=== PATIENT | female | born 1935 | race Caucasian/White ===

== ENCOUNTER → 2018-07-07 | Outpatient (CLI) | payer MEDICARE, OTHER | END | disposition home or self-care (01) | LOC: HKI 10:30 | DX: M16.11 Unilateral primary osteoarthritis, right hip (principal) | CPT/HCPCS: 73523 ==

== ENCOUNTER → 2018-09-11 | Outpatient (CLI) | payer MEDICARE, OTHER | END | disposition home or self-care (01) | LOC: LAB 08:00 | DX: Z01.818 Encounter for other preprocedural examination (principal) | CPT/HCPCS: 87081 ==

== ENCOUNTER → 2018-09-29 | Outpatient (CLI) | payer MEDICARE, OTHER | END | disposition home or self-care (01) | LOC: HKI 09:58 | DX: Z01.818 Encounter for other preprocedural examination (principal) ==

== ENCOUNTER 2018-10-02 06:39 | Inpatient (IN) | payer MEDICARE, OTHER ==
[2018-10-02] MEDS: TRANEXAMIC ACID 1,000 MG in NS 100 ML PRE-OP X1 IVPB (08:00)
[2018-10-02] MEDS ORDERED: DEXAMETHASONE 4 MG/ML 1 ML INJ IV (08:00)
[2018-10-02] MEDS: TRANEXAMIC ACID 1,000 MG in NS 100 ML INTRA-OP X1 IVPB (08:00)
[2018-10-02] MEDS: LACTATED RINGER'S 1,000 ML IV* (08:00)
[2018-10-02] MEDS: CEFAZOLIN 2 GM/50 ML (PMX) 50 ML IVPB ×2 (08:00→17:57)
[2018-10-02] MEDS ORDERED: ACETAMINOPHEN 500 MG TAB PO (08:00)
[2018-10-02] MEDS: DEXAMETHASONE 4 MG/ML 1 ML INJ IV (08:48)
[2018-10-02] MEDS: ACETAMINOPHEN 1000MG/100ML IV 100 ML IVPB (08:49)
[2018-10-02] MEDS ORDERED: FENTAnyl 50 MCG/ML VIAL (09:54)
[2018-10-02] MEDS ORDERED: PROPOFOL 20 ML (09:54)
[2018-10-02] MEDS ORDERED: LIDOCAINE 2% (SDV) 5 ML INJ (09:54)
[2018-10-02] MEDS ORDERED: PROCHLORPERAZINE 10 MG INJ IV (10:00)
[2018-10-02] MEDS ORDERED: FENTAnyl 50 MCG/ML VIAL IV (10:00)
[2018-10-02] MEDS ORDERED: HYDROmorphONE 1 MG/5 ML IV SYRINGE IV ×2 (10:00)
[2018-10-02] MEDS ORDERED: ONDANSETRON 4 MG INJ IV (10:00)
[2018-10-02] MEDS ORDERED: DIPHENHYDRAMINE 50 MG INJ IV (10:00)
[2018-10-02] MEDS ORDERED: MEPERIDINE 25 MG INJ IV (10:00)
[2018-10-02] MEDS ORDERED: MIDAZOLAM 1 MG/ML 2 ML INJ (10:17)
[2018-10-02] MEDS ORDERED: CEFAZOLIN 1 GM INJ (10:34)
[2018-10-02] MEDS ORDERED: ONDANSETRON 4 MG INJ (10:34)
[2018-10-02] MEDS ORDERED: EPHEDrine SULFATE 50 MG/5 ML SYG (10:34)
[2018-10-02] MEDS ORDERED: FAMOTIDINE 20 MG INJ (10:35)
[2018-10-02] MEDS: BACITRACIN 50000 UNITS INJ (10:49)
[2018-10-02] MEDS: POLYMYXIN B 500000 UNIT INJ (10:49)
[2018-10-02] MEDS: LACTATED RINGER'S 1,000 ML IV ×2 (11:51→17:57)
[2018-10-02] MEDS ORDERED: NACL 0.9% 3 ML SYG IV (12:00)
[2018-10-02] MEDS ORDERED: CEFAZOLIN 2 GM/50 ML (PMX) 50 ML IVPB (12:00)
[2018-10-02] MEDS: CELECOXIB 100 MG CAP PO ×2 (12:00→20:14)
[2018-10-02] MEDS ORDERED: BISACODYL 10 MG SUPP PR (12:00)
[2018-10-02] MEDS: ASPIRIN (EC) 81 MG TAB PO ×2 (12:40→20:14)
[2018-10-02] MEDS: METOPROLOL (XL) 50 MG TAB PO (13:00)
[2018-10-02] MEDS: GABAPENTIN 100 MG CAP PO ×4 (13:00→21:00)
[2018-10-02] MEDS: LOSARTAN 50 MG TAB PO (13:00)
[2018-10-02] MEDS: CALCIUM CARBONATE 500 MG CHEW TAB PO (20:14)
[2018-10-03] MEDS: LACTATED RINGER'S 1,000 ML IV ×2 (00:22→12:51)
[2018-10-03] MEDS: CEFAZOLIN 2 GM/50 ML (PMX) 50 ML IVPB (03:10)
[2018-10-03 05:24] LABS: ADD MAN DIFF? NO
[2018-10-03 05:28] LABS: BASOPHILS % 0.2 % (0.0-2.0); EOSINOPHILS % 0.1 % (0.0-7.0); HEMATOCRIT 26.5 % (37.0-47.0); HEMOGLOBIN 8.4 g/dl (12.0-16.0); LYMPHOCYTES # 0.9 10^3/ul (0.8-2.9); LYMPHOCYTES % 9.4 % (15.0-51.0); MEAN CORPUSCULAR HEMOGLOBIN 31.1 pg (29.0-33.0); MEAN CORPUSCULAR HGB CONC 31.7 g/dl (32.0-37.0); MEAN CORPUSCULAR VOLUME 98.1 fl (82.0-101.0); MEAN PLATELET VOLUME 9.3 fl (7.4-10.4); MONOCYTE # 0.8 10^3/ul (0.3-0.9); MONOCYTES % 8.2 % (0.0-11.0); NEUTROPHIL # 7.8 10^3/ul (1.6-7.5); NEUTROPHILS % 81.6 % (39.0-77.0); PLATELET COUNT 187 10^3/UL (140-415)
[2018-10-03 05:28] LABS: WHITE BLOOD COUNT 9.6 10^3/ul (4.8-10.8)
[2018-10-03] MEDS: PANTOPRAZOLE (EC) 40 MG TAB PO (05:31)
[2018-10-03 06:10] LABS: ANION GAP 8 (5-13); BLOOD UREA NITROGEN 24 mg/dl (7-20); CALCIUM 8.9 mg/dl (8.4-10.2); CARBON DIOXIDE 28 mmol/L (21-31); CHLORIDE 105 mmol/L (97-110); CREATININE 0.95 mg/dl (0.44-1.00); GLUCOSE 112 mg/dl (70-220); POTASSIUM 4.1 mmol/L (3.5-5.1); SODIUM 141 mmol/L (135-144)
[2018-10-03] MEDS: oxyCODONE 5 MG TAB PO (06:53)
[2018-10-03] MEDS: CELECOXIB 100 MG CAP PO ×2 (08:15→20:11)
[2018-10-03] MEDS: GABAPENTIN 100 MG CAP PO ×3 (08:15→20:11)
[2018-10-03] MEDS: METOPROLOL (XL) 50 MG TAB PO ×2 (08:15→21:00)
[2018-10-03] MEDS: ASPIRIN (EC) 81 MG TAB PO ×2 (08:16→20:11)
[2018-10-03] MEDS: LOSARTAN 50 MG TAB PO (08:16)
[2018-10-03] MEDS: MAGNESIUM OXIDE 400 MG TAB PO (08:19)
[2018-10-03] MEDS: CALCIUM CARBONATE 500 MG CHEW TAB PO ×2 (08:19→20:11)
[2018-10-03] MEDS: CHOLECALCIFEROL 2,000 UNIT CAP PO (08:19)
[2018-10-03] MEDS ORDERED: ONDANSETRON 4 MG INJ IV (12:00)
[2018-10-04] MEDS: LACTATED RINGER'S 1,000 ML IV ×2 (01:21→13:51)
[2018-10-04] MEDS: oxyCODONE 5 MG TAB PO ×3 (05:06→21:16)
[2018-10-04] MEDS: PANTOPRAZOLE (EC) 40 MG TAB PO (05:06)
[2018-10-04 05:25] LABS: ADD MAN DIFF? NO
[2018-10-04 05:29] LABS: WHITE BLOOD COUNT 6.7 10^3/ul (4.8-10.8)
[2018-10-04 05:29] LABS: BASOPHILS % 0.6 % (0.0-2.0); EOSINOPHILS # 0.2 10^3/ul (0.0-0.5); EOSINOPHILS % 2.4 % (0.0-7.0); HEMATOCRIT 26.6 % (37.0-47.0); HEMOGLOBIN 8.5 g/dl (12.0-16.0); LYMPHOCYTES # 1.3 10^3/ul (0.8-2.9); LYMPHOCYTES % 19.6 % (15.0-51.0); MEAN CORPUSCULAR HEMOGLOBIN 31.6 pg (29.0-33.0); MEAN CORPUSCULAR VOLUME 98.9 fl (82.0-101.0); MEAN PLATELET VOLUME 9.6 fl (7.4-10.4); MONOCYTE # 0.6 10^3/ul (0.3-0.9); MONOCYTES % 9.4 % (0.0-11.0); NEUTROPHIL # 4.5 10^3/ul (1.6-7.5); NEUTROPHILS % 67.7 % (39.0-77.0); PLATELET COUNT 175 10^3/UL (140-415); RED BLOOD COUNT 2.69 10^6/ul (4.20-5.40); RED CELL DISTRIBUTION WIDTH 13.4 % (11.5-14.5)
[2018-10-04 05:46] LABS: PHOSPHORUS 2.4 mg/dl (2.5-4.9)
[2018-10-04 05:57] LABS: ANION GAP 9 (5-13); BLOOD UREA NITROGEN 26 mg/dl (7-20); CALCIUM 8.9 mg/dl (8.4-10.2); CARBON DIOXIDE 29 mmol/L (21-31); CHLORIDE 104 mmol/L (97-110); CREATININE 0.85 mg/dl (0.44-1.00); GLUCOSE 97 mg/dl (70-220); POTASSIUM 4.2 mmol/L (3.5-5.1); SODIUM 142 mmol/L (135-144)
[2018-10-04 06:05] LABS: IRON 21 ug/dl (35-150)
[2018-10-04 06:15] LABS: % IRON SATURATION 9 % SAT (22-52); TOTAL IRON BINDING CAPACITY 222 ug/dl (241-421)
[2018-10-04] MEDS: GABAPENTIN 100 MG CAP PO ×3 (08:59→21:16)
[2018-10-04] MEDS: CHOLECALCIFEROL 2,000 UNIT CAP PO (08:59)
[2018-10-04] MEDS: CELECOXIB 100 MG CAP PO ×2 (08:59→21:15)
[2018-10-04] MEDS: MAGNESIUM OXIDE 400 MG TAB PO (08:59)
[2018-10-04] MEDS: CALCIUM CARBONATE 500 MG CHEW TAB PO ×2 (08:59→21:15)
[2018-10-04] MEDS: ASPIRIN (EC) 81 MG TAB PO ×2 (08:59→21:17)
[2018-10-04] MEDS: LOSARTAN 50 MG TAB PO (09:00)
[2018-10-04] MEDS: METOPROLOL (XL) 50 MG TAB PO ×2 (09:01→21:18)
[2018-10-04] MEDS: POLYETHYLENE GLYCOL 17 GM PACKET PO (13:00)
[2018-10-04] MEDS: SENNA/DOCUSATE NA (8.6MG/50MG) TAB PO (14:12)
[2018-10-05 04:58] LABS: ADD MAN DIFF? NO
[2018-10-05 05:07] LABS: BASOPHILS % 0.3 % (0.0-2.0); EOSINOPHILS # 0.2 10^3/ul (0.0-0.5); HEMATOCRIT 25.9 % (37.0-47.0); HEMOGLOBIN 8.2 g/dl (12.0-16.0); LYMPHOCYTES # 1.4 10^3/ul (0.8-2.9); LYMPHOCYTES % 21.6 % (15.0-51.0); MEAN CORPUSCULAR HGB CONC 31.7 g/dl (32.0-37.0); MEAN CORPUSCULAR VOLUME 101.2 fl (82.0-101.0); MEAN PLATELET VOLUME 9.7 fl (7.4-10.4); MONOCYTE # 0.7 10^3/ul (0.3-0.9); NEUTROPHIL # 4.3 10^3/ul (1.6-7.5); NEUTROPHILS % 64.6 % (39.0-77.0); PLATELET COUNT 168 10^3/UL (140-415); RED BLOOD COUNT 2.56 10^6/ul (4.20-5.40); RED CELL DISTRIBUTION WIDTH 13.5 % (11.5-14.5)
[2018-10-05 05:07] LABS: WHITE BLOOD COUNT 6.6 10^3/ul (4.8-10.8)
[2018-10-05 05:22] LABS: ANION GAP 7 (5-13); BLOOD UREA NITROGEN 23 mg/dl (7-20); CALCIUM 8.6 mg/dl (8.4-10.2); CARBON DIOXIDE 32 mmol/L (21-31); CHLORIDE 102 mmol/L (97-110); CREATININE 0.86 mg/dl (0.44-1.00); GLUCOSE 115 mg/dl (70-220); POTASSIUM 4.4 mmol/L (3.5-5.1); SODIUM 141 mmol/L (135-144)
[2018-10-05] MEDS: PANTOPRAZOLE (EC) 40 MG TAB PO (05:26)
[2018-10-05] MEDS: ASPIRIN (EC) 81 MG TAB PO ×2 (09:13→21:07)
[2018-10-05] MEDS: CELECOXIB 100 MG CAP PO ×2 (09:13→21:07)
[2018-10-05] MEDS: CALCIUM CARBONATE 500 MG CHEW TAB PO ×2 (09:13→21:07)
[2018-10-05] MEDS: POLYETHYLENE GLYCOL 17 GM PACKET PO (09:14)
[2018-10-05] MEDS: CHOLECALCIFEROL 2,000 UNIT CAP PO (09:14)
[2018-10-05] MEDS: MAGNESIUM OXIDE 400 MG TAB PO (09:14)
[2018-10-05] MEDS: GABAPENTIN 100 MG CAP PO ×3 (09:14→21:00)
[2018-10-05] MEDS: LOSARTAN 50 MG TAB PO (09:15)
[2018-10-05] MEDS: METOPROLOL (XL) 50 MG TAB PO ×2 (09:15→21:00)
[2018-10-06 05:18] LABS: ADD MAN DIFF? NO
[2018-10-06] MEDS: PANTOPRAZOLE (EC) 40 MG TAB PO (05:18)
[2018-10-06 05:24] LABS: BASOPHILS % 0.5 % (0.0-2.0); EOSINOPHILS # 0.4 10^3/ul (0.0-0.5); EOSINOPHILS % 5.8 % (0.0-7.0); HEMATOCRIT 24.6 % (37.0-47.0); HEMOGLOBIN 7.9 g/dl (12.0-16.0); LYMPHOCYTES # 1.4 10^3/ul (0.8-2.9); LYMPHOCYTES % 23.6 % (15.0-51.0); MEAN CORPUSCULAR HEMOGLOBIN 32.1 pg (29.0-33.0); MEAN CORPUSCULAR HGB CONC 32.1 g/dl (32.0-37.0); MEAN PLATELET VOLUME 9.8 fl (7.4-10.4); MONOCYTE # 0.5 10^3/ul (0.3-0.9); MONOCYTES % 8.7 % (0.0-11.0); NEUTROPHIL # 3.7 10^3/ul (1.6-7.5); NEUTROPHILS % 61.2 % (39.0-77.0); PLATELET COUNT 175 10^3/UL (140-415); RED BLOOD COUNT 2.46 10^6/ul (4.20-5.40); RED CELL DISTRIBUTION WIDTH 13.2 % (11.5-14.5)
[2018-10-06 05:24] LABS: WHITE BLOOD COUNT 6.1 10^3/ul (4.8-10.8)
[2018-10-06 06:00] LABS: ANION GAP 7 (5-13); BLOOD UREA NITROGEN 21 mg/dl (7-20); CALCIUM 8.2 mg/dl (8.4-10.2); CARBON DIOXIDE 30 mmol/L (21-31); CHLORIDE 103 mmol/L (97-110); CREATININE 0.85 mg/dl (0.44-1.00); GLUCOSE 101 mg/dl (70-220); POTASSIUM 4.6 mmol/L (3.5-5.1); SODIUM 140 mmol/L (135-144)
[2018-10-06] MEDS: METOPROLOL (XL) 25 MG TAB PO ×2 (09:00→21:11)
[2018-10-06] MEDS: GABAPENTIN 100 MG CAP PO ×3 (09:00→21:00)
[2018-10-06] MEDS: LOSARTAN 50 MG TAB PO (09:00)
[2018-10-06] MEDS: CHOLECALCIFEROL 2,000 UNIT CAP PO (09:43)
[2018-10-06] MEDS: CELECOXIB 100 MG CAP PO ×2 (09:43→21:11)
[2018-10-06] MEDS: ASPIRIN (EC) 81 MG TAB PO ×2 (09:43→21:10)
[2018-10-06] MEDS: MAGNESIUM OXIDE 400 MG TAB PO (09:44)
[2018-10-06] MEDS: CALCIUM CARBONATE 500 MG CHEW TAB PO ×2 (09:44→21:10)
[2018-10-06] MEDS: POLYETHYLENE GLYCOL 17 GM PACKET PO (09:44)
[2018-10-06] MEDS: FERROUS FUMARATE (SR) TAB PO ×2 (09:49→21:10)
[2018-10-06] MEDS: HYDROCHLOROTHIAZIDE 12.5 MG CAP PO (09:50)
[2018-10-06] MEDS: ACETAMINOPHEN 325 MG TAB PO ×2 (15:51→21:10)
[2018-10-07 04:53] LABS: ADD MAN DIFF? NO
[2018-10-07 04:56] LABS: BASOPHILS % 0.7 % (0.0-2.0); EOSINOPHILS # 0.3 10^3/ul (0.0-0.5); EOSINOPHILS % 4.6 % (0.0-7.0); HEMATOCRIT 26.1 % (37.0-47.0); HEMOGLOBIN 8.3 g/dl (12.0-16.0); LYMPHOCYTES # 1.3 10^3/ul (0.8-2.9); MEAN CORPUSCULAR HEMOGLOBIN 31.6 pg (29.0-33.0); MEAN CORPUSCULAR HGB CONC 31.8 g/dl (32.0-37.0); MEAN CORPUSCULAR VOLUME 99.2 fl (82.0-101.0); MEAN PLATELET VOLUME 9.4 fl (7.4-10.4); MONOCYTE # 0.5 10^3/ul (0.3-0.9); MONOCYTES % 7.6 % (0.0-11.0); NEUTROPHIL # 3.9 10^3/ul (1.6-7.5); NEUTROPHILS % 64.8 % (39.0-77.0); PLATELET COUNT 217 10^3/UL (140-415); RED BLOOD COUNT 2.63 10^6/ul (4.20-5.40); RED CELL DISTRIBUTION WIDTH 13.1 % (11.5-14.5)
[2018-10-07 04:56] LABS: WHITE BLOOD COUNT 6.1 10^3/ul (4.8-10.8)
[2018-10-07 05:41] LABS: ANION GAP 8 (5-13); BLOOD UREA NITROGEN 26 mg/dl (7-20); CALCIUM 8.7 mg/dl (8.4-10.2); CARBON DIOXIDE 31 mmol/L (21-31); CHLORIDE 103 mmol/L (97-110); CREATININE 0.77 mg/dl (0.44-1.00); GLUCOSE 103 mg/dl (70-220); POTASSIUM 4.9 mmol/L (3.5-5.1); SODIUM 142 mmol/L (135-144)
[2018-10-07] MEDS: PANTOPRAZOLE (EC) 40 MG TAB PO (06:14)
[2018-10-07] MEDS: FERROUS FUMARATE (SR) TAB PO ×2 (08:40→20:30)
[2018-10-07] MEDS: CALCIUM CARBONATE 500 MG CHEW TAB PO ×2 (08:40→20:30)
[2018-10-07] MEDS: CHOLECALCIFEROL 2,000 UNIT CAP PO (08:41)
[2018-10-07] MEDS: CELECOXIB 100 MG CAP PO ×2 (08:41→20:30)
[2018-10-07] MEDS: MAGNESIUM OXIDE 400 MG TAB PO (08:41)
[2018-10-07] MEDS: ASPIRIN (EC) 81 MG TAB PO ×2 (08:41→20:30)
[2018-10-07] MEDS: POLYETHYLENE GLYCOL 17 GM PACKET PO (08:45)
[2018-10-07] MEDS: HYDROCHLOROTHIAZIDE 12.5 MG CAP PO (08:47)
[2018-10-07] MEDS: METOPROLOL (XL) 25 MG TAB PO (08:47)
[2018-10-07] MEDS: LOSARTAN 50 MG TAB PO (08:50)
[2018-10-07] MEDS: GABAPENTIN 100 MG CAP PO ×3 (08:50→20:31)
[2018-10-07 16:04] LABS: ADD UMIC NO; UR ASCORBIC ACID 20 mg/dL (NEGATIVE); UR BILIRUBIN (Dip) NEGATIVE (NEGATIVE); UR BLOOD (Dip) NEGATIVE (NEGATIVE); UR CLARITY CLEAR (CLEAR); UR COLOR STRAW (YELLOW); UR GLUCOSE (Dip) NEGATIVE (NEGATIVE); UR KETONES (Dip) NEGATIVE (NEGATIVE); UR LEUKOCYTE ESTERASE (Dip) NEGATIVE Leu/ul (NEGATIVE); UR NITRITE (Dip) NEGATIVE (NEGATIVE); UR SPECIFIC GRAVITY (Dip) 1.012 (1.003-1.030); UR TOTAL PROTEIN (Dip) NEGATIVE (NEGATIVE); UR UROBILINOGEN (Dip) NEGATIVE (NEGATIVE)
[2018-10-07] MEDS: METOPROLOL (XL) 50 MG TAB PO (20:31)
[2018-10-08 05:35] LABS: ADD MAN DIFF? NO
[2018-10-08 05:48] LABS: BASOPHILS % 0.6 % (0.0-2.0); EOSINOPHILS # 0.3 10^3/ul (0.0-0.5); EOSINOPHILS % 6.6 % (0.0-7.0); HEMATOCRIT 26.5 % (37.0-47.0); HEMOGLOBIN 8.4 g/dl (12.0-16.0); LYMPHOCYTES # 1.4 10^3/ul (0.8-2.9); LYMPHOCYTES % 28.5 % (15.0-51.0); MEAN CORPUSCULAR HEMOGLOBIN 31.2 pg (29.0-33.0); MEAN CORPUSCULAR HGB CONC 31.7 g/dl (32.0-37.0); MEAN CORPUSCULAR VOLUME 98.5 fl (82.0-101.0); MEAN PLATELET VOLUME 9.4 fl (7.4-10.4); MONOCYTE # 0.4 10^3/ul (0.3-0.9); NEUTROPHIL # 2.7 10^3/ul (1.6-7.5); NEUTROPHILS % 56.1 % (39.0-77.0); PLATELET COUNT 245 10^3/UL (140-415); RED BLOOD COUNT 2.69 10^6/ul (4.20-5.40)
[2018-10-08 05:48] LABS: WHITE BLOOD COUNT 4.9 10^3/ul (4.8-10.8)
[2018-10-08 06:21] LABS: ANION GAP 10 (5-13); BLOOD UREA NITROGEN 21 mg/dl (7-20); CALCIUM 9.2 mg/dl (8.4-10.2); CARBON DIOXIDE 30 mmol/L (21-31); CHLORIDE 103 mmol/L (97-110); CREATININE 0.82 mg/dl (0.44-1.00); GLUCOSE 92 mg/dl (70-220); POTASSIUM 4.3 mmol/L (3.5-5.1); SODIUM 143 mmol/L (135-144)
[2018-10-08] MEDS: PANTOPRAZOLE (EC) 40 MG TAB PO (07:00)
[2018-10-08] MEDS: POLYETHYLENE GLYCOL 17 GM PACKET PO (09:00)
[2018-10-08] MEDS: CELECOXIB 100 MG CAP PO ×2 (09:28→20:05)
[2018-10-08] MEDS: CHOLECALCIFEROL 2,000 UNIT CAP PO (09:28)
[2018-10-08] MEDS: CALCIUM CARBONATE 500 MG CHEW TAB PO ×2 (09:29→20:04)
[2018-10-08] MEDS: GABAPENTIN 100 MG CAP PO ×2 (09:29→12:45)
[2018-10-08] MEDS: MAGNESIUM OXIDE 400 MG TAB PO (09:29)
[2018-10-08] MEDS: FERROUS FUMARATE (SR) TAB PO ×2 (09:29→20:05)
[2018-10-08] MEDS: ASPIRIN (EC) 81 MG TAB PO ×2 (09:29→20:05)
[2018-10-08] MEDS: METOPROLOL (XL) 50 MG TAB PO ×2 (09:30→20:05)
[2018-10-08] MEDS: LOSARTAN 50 MG TAB PO (09:31)
[2018-10-08] MEDS: HYDROCHLOROTHIAZIDE 12.5 MG CAP PO (09:31)
[2018-10-08] MEDS: ACETAMINOPHEN 325 MG TAB PO (09:35)
== END 2018-10-08 21:15 | DRG 470 ==
LOC: SUR 06:39 → SDS 06:39 → SUR 08:17 → SDS 08:17 → SUR 06:39 → REC 06:41 → MS1 13:54
PROC: 0SR903A Replacement of Right Hip Joint with Ceramic Synthetic Substitute, Uncemented, Open Approach (ICD-10-PCS; principal; 2018-10-02 10:00)
DX: M16.11 Unilateral primary osteoarthritis, right hip (principal); D64.9 Anemia, unspecified; I10 Essential (primary) hypertension; Z96.642 Presence of left artificial hip joint; K59.00 Constipation, unspecified
CPT/HCPCS: 72170; 80048; 81003; 82728; 83540; 83735; 84100; 85025; 86850; 86900; 86901; 87081; 87086; 88304; 88311; 90686; 97110; 97116; 97161; 97166; 97530; 97535

== ENCOUNTER 2018-10-08 21:30 | Inpatient (IN) | payer MEDICARE, OTHER ==
[2018-10-08] MEDS ORDERED: LACTULOSE 30ML CUP PO (23:00)
[2018-10-08] MEDS ORDERED: SENNA/DOCUSATE NA (8.6MG/50MG) TAB PO (23:30)
[2018-10-08] MEDS ORDERED: BISACODYL 10 MG SUPP PR (23:30)
[2018-10-09 02:38] LABS: ADD UMIC NO; UR ASCORBIC ACID NEGATIVE (NEGATIVE); UR BILIRUBIN (Dip) NEGATIVE (NEGATIVE); UR BLOOD (Dip) NEGATIVE (NEGATIVE); UR CLARITY CLEAR (CLEAR); UR COLOR YELLOW (YELLOW); UR GLUCOSE (Dip) NEGATIVE (NEGATIVE); UR KETONES (Dip) NEGATIVE (NEGATIVE); UR LEUKOCYTE ESTERASE (Dip) NEGATIVE Leu/ul (NEGATIVE); UR NITRITE (Dip) NEGATIVE (NEGATIVE); UR TOTAL PROTEIN (Dip) NEGATIVE (NEGATIVE); UR UROBILINOGEN (Dip) NEGATIVE (NEGATIVE)
[2018-10-09] MEDS ORDERED: oxyCODONE 5 MG TAB PO (03:00)
[2018-10-09] MEDS ORDERED: ONDANSETRON 4 MG INJ IV (03:00)
[2018-10-09] MEDS ORDERED: NACL 0.9% 3 ML SYG IV (03:00)
[2018-10-09] MEDS: PANTOPRAZOLE (EC) 40 MG TAB PO (06:47)
[2018-10-09 07:08] LABS: ADD MAN DIFF? NO
[2018-10-09 07:19] LABS: WHITE BLOOD COUNT 5.4 10^3/ul (4.8-10.8)
[2018-10-09 07:19] LABS: BASOPHILS % 0.7 % (0.0-2.0); EOSINOPHILS # 0.4 10^3/ul (0.0-0.5); EOSINOPHILS % 6.5 % (0.0-7.0); HEMATOCRIT 27.8 % (37.0-47.0); HEMOGLOBIN 8.9 g/dl (12.0-16.0); LYMPHOCYTES # 1.4 10^3/ul (0.8-2.9); LYMPHOCYTES % 25.1 % (15.0-51.0); MEAN CORPUSCULAR HEMOGLOBIN 31.3 pg (29.0-33.0); MEAN CORPUSCULAR VOLUME 97.9 fl (82.0-101.0); MEAN PLATELET VOLUME 9.5 fl (7.4-10.4); MONOCYTE # 0.5 10^3/ul (0.3-0.9); MONOCYTES % 8.3 % (0.0-11.0); NEUTROPHIL # 3.2 10^3/ul (1.6-7.5); NEUTROPHILS % 58.8 % (39.0-77.0); PLATELET COUNT 263 10^3/UL (140-415); RED BLOOD COUNT 2.84 10^6/ul (4.20-5.40); RED CELL DISTRIBUTION WIDTH 13.2 % (11.5-14.5)
[2018-10-09 07:43] LABS: ALANINE AMINOTRANSFERASE 11 IU/L (13-69); ALBUMIN 3.3 g/dl (3.3-4.9); ALBUMIN/GLOBULIN RATIO 1.17; ALKALINE PHOSPHATASE 59 IU/L (42-121); ANION GAP 8 (5-13); ASPARTATE AMINO TRANSFERASE 20 IU/L (15-46); BILIRUBIN,INDIRECT 0.1 mg/dl (0-1.1); BILIRUBIN,TOTAL 0.1 mg/dl (0.2-1.3); BLOOD UREA NITROGEN 20 mg/dl (7-20); CALCIUM 9.5 mg/dl (8.4-10.2); CARBON DIOXIDE 28 mmol/L (21-31); CHLORIDE 105 mmol/L (97-110); CREATININE 0.85 mg/dl (0.44-1.00); GLUCOSE 87 mg/dl (70-220); POTASSIUM 4.2 mmol/L (3.5-5.1); SODIUM 141 mmol/L (135-144); TOTAL PROTEIN 6.1 g/dl (6.1-8.1)
[2018-10-09] MEDS: CHOLECALCIFEROL 2,000 UNIT CAP PO (08:58)
[2018-10-09] MEDS: ASPIRIN (EC) 81 MG TAB PO ×2 (08:58→20:10)
[2018-10-09] MEDS: MAGNESIUM OXIDE 400 MG TAB PO (08:58)
[2018-10-09] MEDS: CELECOXIB 100 MG CAP PO ×2 (08:59→20:11)
[2018-10-09] MEDS: CALCIUM CARBONATE 500 MG CHEW TAB PO ×2 (08:59→20:11)
[2018-10-09] MEDS: METOPROLOL (XL) 50 MG TAB PO ×2 (08:59→20:19)
[2018-10-09] MEDS: FERROUS FUMARATE (SR) TAB PO ×2 (08:59→20:11)
[2018-10-09] MEDS: POLYETHYLENE GLYCOL 17 GM PACKET PO (09:00)
[2018-10-09] MEDS: GABAPENTIN 100 MG CAP PO ×3 (09:00→20:10)
[2018-10-09] MEDS: DOCUSATE SODIUM 100 MG CAP PO ×2 (09:00→20:19)
[2018-10-09] MEDS: HYDROCHLOROTHIAZIDE 12.5 MG CAP PO (09:00)
[2018-10-09] MEDS: LOSARTAN 50 MG TAB PO (11:59)
[2018-10-10] MEDS: PANTOPRAZOLE (EC) 40 MG TAB PO (06:06)
[2018-10-10] MEDS: POLYETHYLENE GLYCOL 17 GM PACKET PO ×2 (09:00→09:29)
[2018-10-10] MEDS: CALCIUM CARBONATE 500 MG CHEW TAB PO ×2 (09:29→21:02)
[2018-10-10] MEDS: CELECOXIB 100 MG CAP PO ×2 (09:29→21:00)
[2018-10-10] MEDS: ASPIRIN (EC) 81 MG TAB PO ×2 (09:29→21:02)
[2018-10-10] MEDS: CHOLECALCIFEROL 2,000 UNIT CAP PO (09:29)
[2018-10-10] MEDS: GABAPENTIN 100 MG CAP PO ×4 (09:29→21:00)
[2018-10-10] MEDS: FERROUS FUMARATE (SR) TAB PO ×2 (09:29→21:02)
[2018-10-10] MEDS: LOSARTAN 50 MG TAB PO (09:29)
[2018-10-10] MEDS: MAGNESIUM OXIDE 400 MG TAB PO (09:29)
[2018-10-10] MEDS: METOPROLOL (XL) 50 MG TAB PO ×2 (09:30→21:02)
[2018-10-10] MEDS: DOCUSATE SODIUM 100 MG CAP PO ×2 (09:30→21:02)
[2018-10-10] MEDS: HYDROCHLOROTHIAZIDE 12.5 MG CAP PO (09:30)
[2018-10-10] MEDS ORDERED: POLYETHYLENE GLYCOL 17 GM PACKET PO (10:00)
[2018-10-11] MEDS: PANTOPRAZOLE (EC) 40 MG TAB PO (06:32)
[2018-10-11] MEDS: CELECOXIB 100 MG CAP PO (09:00)
[2018-10-11] MEDS: GABAPENTIN 100 MG CAP PO (09:00)
[2018-10-11] MEDS: DOCUSATE SODIUM 100 MG CAP PO ×2 (09:08→20:21)
[2018-10-11] MEDS: CALCIUM CARBONATE 500 MG CHEW TAB PO ×2 (09:08→20:21)
[2018-10-11] MEDS: FERROUS FUMARATE (SR) TAB PO ×2 (09:08→20:21)
[2018-10-11] MEDS: METOPROLOL (XL) 50 MG TAB PO ×2 (09:08→20:22)
[2018-10-11] MEDS: CHOLECALCIFEROL 2,000 UNIT CAP PO (09:08)
[2018-10-11] MEDS: MAGNESIUM OXIDE 400 MG TAB PO (09:09)
[2018-10-11] MEDS: LOSARTAN 50 MG TAB PO (09:09)
[2018-10-11] MEDS: ASPIRIN (EC) 81 MG TAB PO ×2 (09:09→20:21)
[2018-10-11] MEDS: HYDROCHLOROTHIAZIDE 12.5 MG CAP PO (09:09)
[2018-10-11] MEDS ORDERED: CELECOXIB 100 MG CAP PO (10:30)
[2018-10-12] MEDS: PANTOPRAZOLE (EC) 40 MG TAB PO (06:11)
[2018-10-12] MEDS: ASPIRIN (EC) 81 MG TAB PO ×2 (08:10→20:38)
[2018-10-12] MEDS: LOSARTAN 50 MG TAB PO (08:10)
[2018-10-12] MEDS: FERROUS FUMARATE (SR) TAB PO ×2 (08:10→20:38)
[2018-10-12] MEDS: MAGNESIUM OXIDE 400 MG TAB PO (08:10)
[2018-10-12] MEDS: HYDROCHLOROTHIAZIDE 12.5 MG CAP PO (08:10)
[2018-10-12] MEDS: CALCIUM CARBONATE 500 MG CHEW TAB PO ×2 (08:10→20:39)
[2018-10-12] MEDS: DOCUSATE SODIUM 100 MG CAP PO ×2 (08:10→20:38)
[2018-10-12] MEDS: METOPROLOL (XL) 50 MG TAB PO ×2 (08:11→20:39)
[2018-10-12] MEDS: CHOLECALCIFEROL 2,000 UNIT CAP PO (08:12)
[2018-10-13] MEDS: PANTOPRAZOLE (EC) 40 MG TAB PO (06:27)
[2018-10-13] MEDS: FERROUS FUMARATE (SR) TAB PO ×2 (09:02→20:41)
[2018-10-13] MEDS: DOCUSATE SODIUM 100 MG CAP PO ×2 (09:03→20:41)
[2018-10-13] MEDS: CHOLECALCIFEROL 2,000 UNIT CAP PO (09:03)
[2018-10-13] MEDS: MAGNESIUM OXIDE 400 MG TAB PO (09:03)
[2018-10-13] MEDS: ASPIRIN (EC) 81 MG TAB PO ×2 (09:03→20:42)
[2018-10-13] MEDS: CALCIUM CARBONATE 500 MG CHEW TAB PO ×2 (09:03→20:41)
[2018-10-13] MEDS: HYDROCHLOROTHIAZIDE 12.5 MG CAP PO (09:07)
[2018-10-13] MEDS: LOSARTAN 50 MG TAB PO (09:07)
[2018-10-13] MEDS: METOPROLOL (XL) 50 MG TAB PO ×2 (09:12→20:42)
[2018-10-13] MEDS: oxyCODONE 5 MG TAB PO (09:13)
[2018-10-13 23:47] LABS: ADD UMIC NO; UR ASCORBIC ACID NEGATIVE (NEGATIVE); UR BILIRUBIN (Dip) NEGATIVE (NEGATIVE); UR BLOOD (Dip) NEGATIVE (NEGATIVE); UR CLARITY CLEAR (CLEAR); UR COLOR STRAW (YELLOW); UR GLUCOSE (Dip) NEGATIVE (NEGATIVE); UR KETONES (Dip) NEGATIVE (NEGATIVE); UR LEUKOCYTE ESTERASE (Dip) NEGATIVE Leu/ul (NEGATIVE); UR NITRITE (Dip) NEGATIVE (NEGATIVE); UR SPECIFIC GRAVITY (Dip) 1.014 (1.003-1.030); UR TOTAL PROTEIN (Dip) NEGATIVE (NEGATIVE); UR UROBILINOGEN (Dip) NEGATIVE (NEGATIVE)
[2018-10-14] MEDS: PANTOPRAZOLE (EC) 40 MG TAB PO (06:34)
[2018-10-14 07:13] LABS: ADD MAN DIFF? NO
[2018-10-14 07:19] LABS: BASOPHIL # 0.1 10^3/ul (0.0-0.1); BASOPHILS % 0.9 % (0.0-2.0); EOSINOPHILS # 0.4 10^3/ul (0.0-0.5); EOSINOPHILS % 5.7 % (0.0-7.0); HEMATOCRIT 27.5 % (37.0-47.0); HEMOGLOBIN 8.8 g/dl (12.0-16.0); LYMPHOCYTES # 1.6 10^3/ul (0.8-2.9); LYMPHOCYTES % 22.6 % (15.0-51.0); MEAN CORPUSCULAR HEMOGLOBIN 31.9 pg (29.0-33.0); MEAN CORPUSCULAR VOLUME 99.6 fl (82.0-101.0); MEAN PLATELET VOLUME 9.2 fl (7.4-10.4); MONOCYTE # 0.5 10^3/ul (0.3-0.9); MONOCYTES % 7.4 % (0.0-11.0); NEUTROPHIL # 4.3 10^3/ul (1.6-7.5); NEUTROPHILS % 63.1 % (39.0-77.0); PLATELET COUNT 326 10^3/UL (140-415); RED BLOOD COUNT 2.76 10^6/ul (4.20-5.40); RED CELL DISTRIBUTION WIDTH 13.8 % (11.5-14.5)
[2018-10-14 07:19] LABS: WHITE BLOOD COUNT 6.9 10^3/ul (4.8-10.8)
[2018-10-14 07:40] LABS: ANION GAP 1 (5-13); BLOOD UREA NITROGEN 28 mg/dl (7-20); CALCIUM 9.5 mg/dl (8.4-10.2); CARBON DIOXIDE 30 mmol/L (21-31); CHLORIDE 109 mmol/L (97-110); CREATININE 0.91 mg/dl (0.44-1.00); GLUCOSE 87 mg/dl (70-220); PHOSPHORUS 4.1 mg/dl (2.5-4.9); POTASSIUM 4.1 mmol/L (3.5-5.1); SODIUM 140 mmol/L (135-144)
[2018-10-14] MEDS: CHOLECALCIFEROL 2,000 UNIT CAP PO (10:06)
[2018-10-14] MEDS: FERROUS FUMARATE (SR) TAB PO ×2 (10:06→20:48)
[2018-10-14] MEDS: LOSARTAN 50 MG TAB PO ×2 (10:07→10:54)
[2018-10-14] MEDS: ASPIRIN (EC) 81 MG TAB PO ×2 (10:07→20:52)
[2018-10-14] MEDS: DOCUSATE SODIUM 100 MG CAP PO ×2 (10:07→20:50)
[2018-10-14] MEDS: CALCIUM CARBONATE 500 MG CHEW TAB PO ×2 (10:07→20:48)
[2018-10-14] MEDS: METOPROLOL (XL) 50 MG TAB PO ×2 (10:07→20:51)
[2018-10-14] MEDS: MAGNESIUM OXIDE 400 MG TAB PO (10:08)
[2018-10-14] MEDS: ACETAMINOPHEN 325 MG TAB PO (20:49)
[2018-10-15] MEDS: PANTOPRAZOLE (EC) 40 MG TAB PO (06:22)
[2018-10-15] MEDS: FERROUS FUMARATE (SR) TAB PO ×2 (09:52→20:05)
[2018-10-15] MEDS: CHOLECALCIFEROL 2,000 UNIT CAP PO (09:52)
[2018-10-15] MEDS: CALCIUM CARBONATE 500 MG CHEW TAB PO ×2 (09:52→20:05)
[2018-10-15] MEDS: LOSARTAN 50 MG TAB PO (09:52)
[2018-10-15] MEDS: DOCUSATE SODIUM 100 MG CAP PO ×2 (09:52→20:05)
[2018-10-15] MEDS: ASPIRIN (EC) 81 MG TAB PO ×2 (09:52→20:05)
[2018-10-15] MEDS: MAGNESIUM OXIDE 400 MG TAB PO (09:58)
[2018-10-15] MEDS: METOPROLOL (XL) 50 MG TAB PO ×2 (09:59→20:06)
[2018-10-15] MEDS: LIDOCAINE 5% PATCH TD (13:09)
[2018-10-15] MEDS: ACETAMINOPHEN 325 MG TAB PO (20:05)
[2018-10-16] MEDS: PANTOPRAZOLE (EC) 40 MG TAB PO (06:37)
[2018-10-16] MEDS: METOPROLOL (XL) 50 MG TAB PO ×2 (08:20→20:33)
[2018-10-16] MEDS: LOSARTAN 50 MG TAB PO (08:20)
[2018-10-16] MEDS: LIDOCAINE 5% PATCH TD (09:00)
[2018-10-16] MEDS: CALCIUM CARBONATE 500 MG CHEW TAB PO ×2 (09:25→20:33)
[2018-10-16] MEDS: ASPIRIN (EC) 81 MG TAB PO ×2 (09:25→20:32)
[2018-10-16] MEDS: FERROUS FUMARATE (SR) TAB PO ×2 (09:25→20:33)
[2018-10-16] MEDS: CHOLECALCIFEROL 2,000 UNIT CAP PO (09:25)
[2018-10-16] MEDS: MAGNESIUM OXIDE 400 MG TAB PO (09:25)
[2018-10-16] MEDS: DOCUSATE SODIUM 100 MG CAP PO ×2 (09:29→20:32)
[2018-10-16] MEDS: ACETAMINOPHEN 325 MG TAB PO (22:11)
[2018-10-17] MEDS: PANTOPRAZOLE (EC) 40 MG TAB PO (06:48)
[2018-10-17] MEDS: DOCUSATE SODIUM 100 MG CAP PO ×2 (08:26→21:18)
[2018-10-17] MEDS: CHOLECALCIFEROL 2,000 UNIT CAP PO (08:26)
[2018-10-17] MEDS: MAGNESIUM OXIDE 400 MG TAB PO (08:26)
[2018-10-17] MEDS: LOSARTAN 50 MG TAB PO (08:26)
[2018-10-17] MEDS: ASPIRIN (EC) 81 MG TAB PO ×2 (08:26→21:18)
[2018-10-17] MEDS: FERROUS FUMARATE (SR) TAB PO ×2 (08:27→21:18)
[2018-10-17] MEDS: METOPROLOL (XL) 50 MG TAB PO ×2 (08:27→21:19)
[2018-10-17] MEDS: CALCIUM CARBONATE 500 MG CHEW TAB PO ×2 (08:27→21:24)
[2018-10-17] MEDS: LIDOCAINE 5% PATCH TD (09:00)
[2018-10-17] MEDS: ACETAMINOPHEN 325 MG TAB PO (21:33)
[2018-10-18] MEDS: PANTOPRAZOLE (EC) 40 MG TAB PO (06:41)
[2018-10-18] MEDS: ASPIRIN (EC) 81 MG TAB PO ×2 (08:37→20:45)
[2018-10-18] MEDS: CALCIUM CARBONATE 500 MG CHEW TAB PO ×2 (08:37→20:45)
[2018-10-18] MEDS: DOCUSATE SODIUM 100 MG CAP PO ×2 (08:37→20:45)
[2018-10-18] MEDS: FERROUS FUMARATE (SR) TAB PO ×2 (08:38→20:45)
[2018-10-18] MEDS: CHOLECALCIFEROL 2,000 UNIT CAP PO (08:38)
[2018-10-18] MEDS: MAGNESIUM OXIDE 400 MG TAB PO (08:38)
[2018-10-18] MEDS: LOSARTAN 50 MG TAB PO (08:41)
[2018-10-18] MEDS: HYDROCHLOROTHIAZIDE 25 MG TAB PO (08:42)
[2018-10-18] MEDS: METOPROLOL (XL) 50 MG TAB PO ×2 (08:42→20:46)
[2018-10-19] MEDS: ACETAMINOPHEN 325 MG TAB PO ×2 (02:33→21:14)
[2018-10-19] MEDS: PANTOPRAZOLE (EC) 40 MG TAB PO (06:22)
[2018-10-19] MEDS: METOPROLOL (XL) 50 MG TAB PO ×2 (09:11→21:19)
[2018-10-19] MEDS: CALCIUM CARBONATE 500 MG CHEW TAB PO ×2 (09:11→21:15)
[2018-10-19] MEDS: DOCUSATE SODIUM 100 MG CAP PO ×2 (09:11→21:14)
[2018-10-19] MEDS: CHOLECALCIFEROL 2,000 UNIT CAP PO (09:12)
[2018-10-19] MEDS: LOSARTAN 50 MG TAB PO (09:12)
[2018-10-19] MEDS: MAGNESIUM OXIDE 400 MG TAB PO (09:12)
[2018-10-19] MEDS: HYDROCHLOROTHIAZIDE 25 MG TAB PO (09:12)
[2018-10-19] MEDS: ASPIRIN (EC) 81 MG TAB PO ×2 (09:12→21:14)
[2018-10-19] MEDS: FERROUS FUMARATE (SR) TAB PO ×2 (09:12→21:14)
[2018-10-20] MEDS: ACETAMINOPHEN 325 MG TAB PO ×2 (02:03→22:09)
[2018-10-20] MEDS: PANTOPRAZOLE (EC) 40 MG TAB PO (06:09)
[2018-10-20 07:25] LABS: ADD MAN DIFF? NO
[2018-10-20 07:32] LABS: BASOPHIL # 0.1 10^3/ul (0.0-0.1); BASOPHILS % 1.1 % (0.0-2.0); EOSINOPHILS # 0.5 10^3/ul (0.0-0.5); EOSINOPHILS % 7.4 % (0.0-7.0); HEMATOCRIT 30.7 % (37.0-47.0); HEMOGLOBIN 9.8 g/dl (12.0-16.0); LYMPHOCYTES # 1.6 10^3/ul (0.8-2.9); LYMPHOCYTES % 26.4 % (15.0-51.0); MEAN CORPUSCULAR HEMOGLOBIN 31.6 pg (29.0-33.0); MEAN CORPUSCULAR HGB CONC 31.9 g/dl (32.0-37.0); MONOCYTE # 0.5 10^3/ul (0.3-0.9); MONOCYTES % 7.4 % (0.0-11.0); NEUTROPHIL # 3.5 10^3/ul (1.6-7.5); NEUTROPHILS % 57.5 % (39.0-77.0); PLATELET COUNT 336 10^3/UL (140-415); RED CELL DISTRIBUTION WIDTH 13.8 % (11.5-14.5)
[2018-10-20 07:32] LABS: WHITE BLOOD COUNT 6.1 10^3/ul (4.8-10.8)
[2018-10-20 07:47] LABS: ALANINE AMINOTRANSFERASE 12 IU/L (13-69); ALBUMIN 3.4 g/dl (3.3-4.9); ALBUMIN/GLOBULIN RATIO 1.17; ALKALINE PHOSPHATASE 74 IU/L (42-121); ANION GAP 6 (5-13); ASPARTATE AMINO TRANSFERASE 17 IU/L (15-46); BILIRUBIN,INDIRECT 0.1 mg/dl (0-1.1); BILIRUBIN,TOTAL 0.1 mg/dl (0.2-1.3); BLOOD UREA NITROGEN 22 mg/dl (7-20); CALCIUM 9.7 mg/dl (8.4-10.2); CARBON DIOXIDE 29 mmol/L (21-31); CHLORIDE 106 mmol/L (97-110); CREATININE 0.94 mg/dl (0.44-1.00); GLUCOSE 90 mg/dl (70-220); POTASSIUM 4.4 mmol/L (3.5-5.1); SODIUM 141 mmol/L (135-144); TOTAL PROTEIN 6.3 g/dl (6.1-8.1)
[2018-10-20] MEDS: DOCUSATE SODIUM 100 MG CAP PO ×2 (09:18→20:37)
[2018-10-20] MEDS: LOSARTAN 50 MG TAB PO (09:18)
[2018-10-20] MEDS: MAGNESIUM OXIDE 400 MG TAB PO (09:19)
[2018-10-20] MEDS: HYDROCHLOROTHIAZIDE 25 MG TAB PO (09:19)
[2018-10-20] MEDS: CALCIUM CARBONATE 500 MG CHEW TAB PO ×2 (09:19→20:37)
[2018-10-20] MEDS: FERROUS FUMARATE (SR) TAB PO ×2 (09:19→20:36)
[2018-10-20] MEDS: ASPIRIN (EC) 81 MG TAB PO ×2 (09:19→20:36)
[2018-10-20] MEDS: CHOLECALCIFEROL 2,000 UNIT CAP PO (09:19)
[2018-10-20] MEDS: METOPROLOL (XL) 50 MG TAB PO ×2 (09:19→20:37)
[2018-10-21] MEDS: PANTOPRAZOLE (EC) 40 MG TAB PO (06:35)
[2018-10-21] MEDS: FERROUS FUMARATE (SR) TAB PO ×2 (08:40→20:38)
[2018-10-21] MEDS: ASPIRIN (EC) 81 MG TAB PO ×2 (08:41→20:38)
[2018-10-21] MEDS: MAGNESIUM OXIDE 400 MG TAB PO (08:41)
[2018-10-21] MEDS: HYDROCHLOROTHIAZIDE 25 MG TAB PO (08:41)
[2018-10-21] MEDS: LOSARTAN 50 MG TAB PO (08:41)
[2018-10-21] MEDS: DOCUSATE SODIUM 100 MG CAP PO ×2 (08:41→20:38)
[2018-10-21] MEDS: METOPROLOL (XL) 50 MG TAB PO ×2 (08:41→20:40)
[2018-10-21] MEDS: CHOLECALCIFEROL 2,000 UNIT CAP PO (08:42)
[2018-10-21] MEDS: CALCIUM CARBONATE 500 MG CHEW TAB PO ×2 (08:43→20:38)
[2018-10-21] MEDS: ACETAMINOPHEN 325 MG TAB PO (21:56)
[2018-10-22] MEDS: PANTOPRAZOLE (EC) 40 MG TAB PO (05:20)
[2018-10-22] MEDS: DOCUSATE SODIUM 100 MG CAP PO (08:56)
[2018-10-22] MEDS: MAGNESIUM OXIDE 400 MG TAB PO (08:57)
[2018-10-22] MEDS: FERROUS FUMARATE (SR) TAB PO (08:57)
[2018-10-22] MEDS: LOSARTAN 50 MG TAB PO (08:57)
[2018-10-22] MEDS: HYDROCHLOROTHIAZIDE 25 MG TAB PO (08:57)
[2018-10-22] MEDS: ASPIRIN (EC) 81 MG TAB PO (08:57)
[2018-10-22] MEDS: AMLODIPINE 2.5 MG TAB PO (08:57)
[2018-10-22] MEDS: CALCIUM CARBONATE 500 MG CHEW TAB PO (08:58)
[2018-10-22] MEDS: METOPROLOL (XL) 50 MG TAB PO (08:58)
[2018-10-22] MEDS: CHOLECALCIFEROL 2,000 UNIT CAP PO (08:58)
== END 2018-10-22 13:41 | disposition home health service (06) | DRG 561 ==
LOC: VRC 10-10 11:10
PROC: F07Z5ZZ Bed Mobility Treatment (ICD-10-PCS; principal; 2018-10-08)
PROC: F08Z2ZZ Grooming/Personal Hygiene Treatment (ICD-10-PCS; 2018-10-08)
DX: Z47.1 Aftercare following joint replacement surgery (principal); G89.18 Other acute postprocedural pain; Z96.641 Presence of right artificial hip joint; Z96.642 Presence of left artificial hip joint; I10 Essential (primary) hypertension; D64.9 Anemia, unspecified; Z79.82 Long term (current) use of aspirin; R35.0 Frequency of micturition; R35.1 Nocturia
CPT/HCPCS: 80048; 80053; 81003; 83735; 84100; 85025; 87081; 87086; 93970; 97110; 97112; 97116; 97150; 97163; 97166; 97530; 97535

== ENCOUNTER → 2018-10-27 | Outpatient (CLI) | payer MEDICARE, OTHER | END | disposition home or self-care (01) | LOC: HKI 11:16 | DX: Z09 Encounter for follow-up examination after completed treatment for conditions other than malignant neoplasm (principal); Z96.641 Presence of right artificial hip joint | CPT/HCPCS: 73502 ==

== ENCOUNTER → 2018-11-24 | Outpatient (CLI) | payer MEDICARE, OTHER | END | disposition home or self-care (01) | LOC: HKI 10:30 | DX: M25.551 Pain in right hip (principal); Z96.641 Presence of right artificial hip joint | CPT/HCPCS: 73502 ==